=== PATIENT | male | born 1985 | race Caucasian/White ===

== ENCOUNTER 2017-06-29 16:51 | Emergency (ER) | payer SELFPAY ==
[~2017-06-29] VITALS: Ht 190.5 cm; Wt 135.0 kg
[~2017-06-29 16:51] MED LIST: CLAR10TA7 PO; DEPA500T3 PO; ZYRT10TA12 PO
[2017-06-29 16:57] VITALS: BP 118/62; PULSE 88; RESP 16; TEMP 98.2; O2SAT 98
--- NOTE | 2017-06-29 17:21 | RADRPT ---
EXAM DATE/TIME: 06/29/2017 17:09 [place] COMPARISON: No previous studies available for comparison. INDICATIONS : Chest pain. MEDICAL HISTORY : None. SURGICAL HISTORY : None. ENCOUNTER: Initial ACUITY: 1 day PAIN SCORE: 6/10 LOCATION: middle chest. FINDINGS: A single view of the chest demonstrates the lungs to be symmetrically aerated without evidence of mas s, infiltrate or effusion. The cardiomediastinal contours are unremarkable. Osseous structures are intact. There are overlying electrocardiogram leads. CONCLUSION: No acute disease. Adam Damon MD on June 29, 2017 at 17:18 Board Certified Radiologist. This report was verified electronically.
[2017-06-29 18:26] LABS: AUTOMATED NEUTROPHIL # 4.1 TH/MM3 (1.8-7.7); BASOPHIL % 0.7 % (0.0-2.0); EOSINOPHIL # 0.1 TH/MM3 (0-0.4); EOSINOPHIL % 1.7 % (0.0-4.0); HEMATOCRIT 41.8 % (39.0-51.0); HEMOGLOBIN 14.6 GM/DL (13.0-17.0); LYMPH % 30.7 % (9.0-44.0); LYMPHOCYTE # 2.1 TH/MM3 (1.0-4.8); MEAN CELL VOLUME 83.4 FL (80.0-100.0); MEAN CORPUSCULAR HEMOGLOBIN 29.1 PG (27.0-34.0); MEAN CORPUSCULAR HGB CONC 34.9 % (32.0-36.0); MEAN PLATELET VOLUME 9.4 FL (7.0-11.0); MONO % 6.4 % (0.0-8.0); MONOCYTE # 0.4 TH/MM3 (0-0.9); NEUT % 60.5 % (16.0-70.0); PLATELET COUNT 233 TH/MM3 (150-450); RED BLOOD COUNT 5.01 MIL/MM3 (4.50-5.90); WHITE BLOOD COUNT 6.8 TH/MM3 (4.0-11.0)
--- NOTE | 2017-06-29 18:34 | PD ---
HPI Chief Complaint: Chest Pain Time Seen by Provider: 18:15 Travel History International Travel<30 days: No Contact w/Intl Traveler<30days: No Traveled to known affect area: No History of Present Illness HPI 32-year-old male presents to the emergency department for the EMS for 2 separate issues. First, the patient states he started with midsternal chest pain is worse with movement and coughing today. He also states he is feeling suicidal. Patient reports being homeless. She denies any significant cardiac disease. However, he states that he was on nitroglycerin. He cannot tell me why he would take nitroglycerin and who prescribed this to him. The patient states that he has been feeling suicidal, but denies any attempt to hurt himself at this time. Patient states that he has a family history of "degenerative heart disease". When asked what this means, he cannot further explain. Patient denies any leg swelling. No DVT or PE history. Patient denies any recent surgery or travel. No hemoptysis. Patient reports history of epilepsy, psychiatric history. He states that being off his psychiatric medications has made his suicidal ideations worse. Moderate severity. Patient currently rates midsternal chest pain 6 out of 10. Rest will help alleviate his pain. Patient denies any history of IV drug use. PFSH Past Medical History ADHD: Yes Bipolar Disorder: Yes (PTSD) Anxiety: Yes Depression: Yes Diminished Hearing: No Psychiatric: Yes Seizures: Yes Past Surgical History Tonsillectomy: Yes Tympanostomy Tube: Yes Social History Alcohol Use: Yes (SOCIALLY) Tobacco Use: Yes (1-6 PACKS PER DAY) Substance Use: Yes (MARIJUANA) Allergies-Medications (Allergen,Severity, Reaction): Coded Allergies: No Known Allergies (Unverified , 05/28/14) Reported Meds & Prescriptions Reported Meds & Active Scripts Active Zyrtec (Cetirizine HCl) 10 Mg Tab 10 Mg PO DAILY Depakote ER 500 mg (Divalproex Sodium) 500 Mg Tab 1,000 Mg PO HS Reported Claritin (Loratadine) 10 Mg Tab 10 Mg PO DAILY Review of Systems Except as stated in HPI: all other systems reviewed are Neg Physical Exam Narrative GENERAL: Well-nourished, well-developed male patient, afebrile. SKIN: Focused skin assessment warm/dry. HEAD: Normocephalic. Atraumatic. EYES: No scleral icterus. No injection or drainage. NECK: Supple, trachea midline. No JVD or lymphadenopathy. CARDIOVASCULAR: Regular rate and rhythm without murmurs, gallops, or rubs. RESPIRATORY: Breath sounds equal bilaterally. No accessory muscle use. Lungs sounds are clear to auscultation. GASTROINTESTINAL: Abdomen soft, non-tender, nondistended. MUSCULOSKELETAL: No cyanosis, or edema. Midsternal chest pain is easily reproduced with palpation. BACK: Nontender without obvious deformity. No CVA tenderness. Data Data Last Documented VS Vital Signs Date Time Temp Pulse Resp B/P (MAP) Pulse Ox O2 Delivery O2 Flow Rate FiO2 06/29/17 16:57 98.2 88 16 118/62 (80) 98 Orders Orders Electrocardiogram (06/29/17 17:) Complete Blood Count With Diff (06/29/17 17:01) Basic Metabolic Panel (Bmp) (06/29/17 17:01) Ckmb (Isoenzyme) Profile (06/29/17 17:01) Troponin I (06/29/17 17:01) Chest, Single Ap (06/29/17 17:01) Iv Access Insert/Monitor (06/29/17 17:01) Ecg Monitoring (06/29/17 17:01) Oxygen Administration (06/29/17 17:01) Oximetry (06/29/17 17:01) Drug Screen, Random Urine (06/29/17 18:28) Psych Screen (06/29/17 18:28) Potassium Chloride (Kcl) (06/29/17 19:00) Alcohol (Ethanol) (06/29/17 17:15) Labs Laboratory Tests Test 06/29/17 17:15 White Blood Count 6.8 TH/MM3 Red Blood Count 5.01 MIL/MM3 Hemoglobin 14.6 GM/DL Hematocrit 41.8 % Mean Corpuscular Volume 83.4 FL Mean Corpuscular Hemoglobin 29.1 PG Mean Corpuscular Hemoglobin Concent 34.9 % Red Cell Distribution Width 14.0 % Platelet Count 233 TH/MM3 Mean Platelet Volume 9.4 FL Neutrophils (%) (Auto) 60.5 % Lymphocytes (%) (Auto) 30.7 % Monocytes (%) (Auto) 6.4 % Eosinophils (%) (Auto) 1.7 % Basophils (%) (Auto) 0.7 % Neutrophils # (Auto) 4.1 TH/MM3 Lymphocytes # (Auto) 2.1 TH/MM3 Monocytes # (Auto) 0.4 TH/MM3 Eosinophils # (Auto) 0.1 TH/MM3 Basophils # (Auto) 0.0 TH/MM3 CBC Comment DIFF FINAL Differential Comment Blood Urea Nitrogen 13 MG/DL Creatinine 1.01 MG/DL Random Glucose 98 MG/DL Calcium Level 8.3 MG/DL Sodium Level 139 MEQ/L Potassium Level 3.3 MEQ/L Chloride Level 107 MEQ/L Carbon Dioxide Level 21.5 MEQ/L Anion Gap 11 MEQ/L Estimat Glomerular Filtration Rate 86 ML/MIN Total Creatine Kinase 75 U/L Troponin I LESS THAN 0.02 NG/ML MDM Medical Decision Making Medical Screen Exam Complete: Yes Emergency Medical Condition: Yes Medical Record Reviewed: Yes Interpretation(s) Last Impressions Chest X-Ray 06/29/17 1701 Signed Impressions: Service Date/Time: Thursday, June 29, 2017 17:09 - CONCLUSION: No acute disease. Adam Damon MD Differential Diagnosis Atypical chest pain versus chest wall pain versus pneumonia versus pneumothorax is unlikely ACS versus depression versus anxiety Narrative Course 32-year-old male presents to the emergency department stating that he has been having chest pain today with movement and coughing as well as feeling suicidal. EKG, CBC, BMP, CK, troponin, alcohol level, urine drug screen are ordered and pending. Chest x-ray is ordered and pending. CBC is unremarkable. BMP shows hypokalemia at 3.3. CK is 75. Troponin is less than 0.02. Alcohol level is pending. Urine drug screen is pending. Chest x-ray shows no acute disease. Patient is given potassium chloride 20 mg by mouth. I discussed results with attending physician, Dr. Christiansen. Chest pain appears musculoskeletal in nature. Patient is medically cleared for psychiatric screening and disposition. Mental health screening discussed with the patient. Psychiatric screen ordered. Diagnosis Primary Impression: Depression Qualified Codes: F32.9 - Major depressive disorder, single episode, unspecified Condition: Stable Cassidy Hendrix Jun 29, 2017 18:34
[2017-06-29 18:39] LABS: BICARBONATE 21.5 MEQ/L (21.0-32.0); BLOOD UREA NITROGEN 13 MG/DL (7-18); CALCIUM 8.3 MG/DL (8.5-10.1); CHLORIDE 107 MEQ/L (98-107); CREATININE 1.01 MG/DL (0.60-1.30); GLOMERULAR FILTRATION RATE 86 ML/MIN (>89); GLUCOSE,RANDOM 98 MG/DL (74-106); SODIUM (NA) 139 MEQ/L (136-145)
[2017-06-29 18:43] LABS: TROPONIN I LESS THAN 0.02 NG/ML (0.02-0.05)
[2017-06-29] MEDS ORDERED: POTASSIUM CHLORIDE 20 MEQ CONTROLLED RELEASE TAB PO ONE (19:00)
[2017-06-30 04:19] VITALS: O2SAT 97
[2017-06-30 04:22] VITALS: BP 132/65; PULSE 72; RESP 16; O2SAT 98
[2017-06-30] MEDS ORDERED: CLON-409 PO (06:45)
[2017-06-30] MEDS ORDERED: ALPR.5 PO (06:45)
[2017-06-30] MEDS ORDERED: TRAM50TA PO (06:45)
[2017-06-30] MEDS ORDERED: CETI-1 (06:50)
[2017-06-30] MEDS ORDERED: DEPA500T3 PO (06:50)
[2017-06-30] MEDS ORDERED: CLAR10CA3 PO (06:50)
[2017-06-30 07:35] VITALS: BP 147/83; PULSE 72; RESP 17; O2SAT 99
[2017-06-30 13:30] VITALS: BP 138/64; PULSE 64; RESP 19; O2SAT 97
--- NOTE | 2017-06-30 21:56 | EKG ---
Date Performed: 06/29/2017 Time Performed: 17:36:26 PTAGE: 32 years EKG: Sinus rhythm WITH SINUS ARRHYTHMIA MODERATE INTRAVENTRICULAR CONDUCTION DELAY BORDERLINE ECG PREVIOUS TRACING : 05/28/2014 15.59 Compared to prior tracing no significant change DOCTOR: Camille Marino Interpretating Date/Time 06/30/2017 21:55:57
== END 2017-06-30 14:37 | disposition home or self-care (01) ==
LOC: NEDAMB 16:51 → NEPC 06-30 14:37
DX: F32.9 Major depressive disorder, single episode, unspecified (principal); R07.9 Chest pain, unspecified; F17.200 Nicotine dependence, unspecified, uncomplicated; Z79.899 Other long term (current) drug therapy
CPT/HCPCS: 71045; 80048; 80307; 82550; 84484; 85025; 93005; 99285